=== PATIENT | female | born 1995 | race Hispanic/Latino ===

== ENCOUNTER 2018-09-05 22:05 | Emergency (ER) | payer SELFPAY ==
--- NOTE | 2018-09-06 00:54 | ER ---
Nurse's Notes [facility] Name: Deepa Cr Age: 23 yrs Sex: Female : 1995 Arrival Date: 09/05/2018 Time: 22:08 Bed 27 Private MD: Diagnosis: Acute upper respiratory infection, unspecified Presentation: 09/05 22:14 Presenting complaint: Patient states: "i am having left ear pain and body aches and jd3 just feeling bad with a little bit of fever.". Transition of care: patient was not received from another setting of care. Onset of symptoms was August 30, 2018. Risk Assessment: Do you want to hurt yourself or someone else? Patient reports no desire to harm self or others. Initial Sepsis Screen: Does the patient meet any 2 criteria? No. Patient's initial sepsis screen is negative. Does the patient have a suspected source of infection? No. Patient's initial sepsis screen is negative. Care prior to arrival: None. 22:14 Method Of Arrival: Ambulatory jd3 22:14 Acuity: BELLO 4 jd3 BRAND MGR: 22:16 LMP 09/05/2018 jd3 Historical: - Allergies: 22:16 No Known Allergies; jd3 - Home Meds: 22:16 None [Active]; jd3 - PMHx: 22:16 None; jd3 - PSHx: 22:16 None; jd3 - Immunization history:: Adult Immunizations up to date. - Social history:: Smoking status: Patient/guardian denies using tobacco. - Ebola Screening: : Patient negative for fever greater than or equal to 101.5 degrees Fahrenheit, and additional compatible Ebola Virus Disease symptoms. Screenin:00 Abuse screen: Denies threats or abuse. Denies injuries from another. Nutritional rr5 screening: No deficits noted. Tuberculosis screening: No symptoms or risk factors identified. Fall Risk None identified. Total Burks Fall Scale indicates No Risk (0-24 pts). Assessment: 23:00 General: Appears in no apparent distress. uncomfortable, Behavior is calm, cooperative, rr5 appropriate for age. Pain: Complains of pain in left ear Pain does not radiate. Pain currently is 8 out of 10 on a pain scale. Quality of pain is described as aching, Pain began gradually, Is intermittent. Neuro: Level of Consciousness is awake, alert, obeys commands, Oriented to person, place, time, situation, Appropriate for age. Cardiovascular: Capillary refill < 3 seconds Patient's skin is warm and dry. Respiratory: Airway is patent Respiratory effort is even, unlabored, Respiratory pattern is regular, symmetrical. GI: No signs and/or symptoms were reported involving the gastrointestinal system. : No signs and/or symptoms were reported regarding the genitourinary system. EENT: Reports pain in left ear when swallowing Pain is 8 out of 10 on a pain scale. Derm: Skin is intact, Skin temperature is warm. Musculoskeletal: Capillary refill < 3 seconds, Range of motion: intact in all extremities, Reports weakness in body. 09/06 00:10 Reassessment: Patient appears in no apparent distress at this time. Patient is alert, rr5 oriented x 3, equal unlabored respirations, skin warm/dry/pink. awaiting for laboratory report no complaints made. Vital Signs: 09/05 22:16 BP 135 / 82; Pulse 104; Resp 17 S; Temp 98.6(O); Pulse Ox 98% on R/A; Weight 83.91 kg jd3 (R); Height 5 ft. 0 in. (152.40 cm) (R); Pain 7/10; 23:00 BP 112 / 87; Pulse 95; Resp 17; Pulse Ox 100% ; rr5 09/06 00:00 BP 116 / 81; Pulse 91; Resp 16; Pulse Ox 99% ; rr5 09/05 22:16 Body Mass Index 36.13 (83.91 kg, 152.40 cm) jd3 ED Course: 09/05 22:08 Patient arrived in ED. es 22:15 Triage completed. jd3 22:17 Arm band placed on. jd3 22:22 Noni Callahan [facility]C [facility]. kb 22:22 Rafy Deutsch MD is Attending Physician. kb 23:02 Espinoza Ramírez, TIFFANIE is Primary Nurse. rr5 09/06 00:14 No provider procedures requiring assistance completed. rr5 Administered Medications: No medications were administered Outcome: 00:53 Discharge ordered by . kb 01:14 Patient left the ED. rr5 Signatures: Noni Callahan FNP-C FNP-[place] Jonathon, RN RN jd3 Ramírez, Espinoza, RN RN rr5
--- NOTE | 2018-09-06 00:54 | EDPHYS ---
Physician Documentation [facility] Name: Deepa Cr Age: 23 yrs Sex: Female : 1995 Arrival Date: 09/05/2018 Time: 22:08 Bed 27 Private MD: ED Physician Rafy Deutsch HPI: 09/06 00:43 This 23 yrs old Female presents to ER via Ambulatory with complaints of kb Weakness, Ear Pain. 00:43 The patient or guardian reports cough, that is intermittent, described as mild, with no kb sputum, flu symptoms, arthralgias, low-grade fever, myalgias. Onset: The symptoms/episode began/occurred 1 week(s) ago. Severity of symptoms: At their worst the symptoms were mild, in the emergency department the symptoms are unchanged. Modifying factors: The symptoms are alleviated by nothing, the symptoms are aggravated by nothing. Associated signs and symptoms: Pertinent positives: earache, fever, rhinorrhea, sore throat, Pertinent negatives: chest pain, diarrhea, nausea, vomiting. The patient has not experienced similar symptoms in the past. The patient has not recently seen a physician. 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 - Social history:: Smoking status: Patient/guardian denies using tobacco. - Ebola Screening: : Patient negative for fever greater than or equal to 101.5 degrees Fahrenheit, and additional compatible Ebola Virus Disease symptoms. ROS: 09/06 00:41 Cardiovascular: Negative for chest pain, palpitations, and edema, Abdomen/GI: Negative kb for abdominal pain, nausea, vomiting, diarrhea, and constipation, Back: Negative for injury and pain, : Negative for injury, bleeding, discharge, and swelling, MS/Extremity: Negative for injury and deformity, Skin: Negative for injury, rash, and discoloration, Neuro: Negative for headache, weakness, numbness, tingling, and seizure. Constitutional: Positive for body aches, chills, fatigue, fever, malaise, Negative for poor PO intake, weight loss. ENT: Positive for ear pain, rhinorrhea, sinus congestion, sore throat. Respiratory: Positive for cough, Negative for dyspnea on exertion, hemoptysis, orthopnea, pleurisy, shortness of breath, sputum production, wheezing. Exam: 00:42 Constitutional: This is a well developed, well nourished patient who is awake, alert, kb and in no acute distress. Head/Face: Normocephalic, atraumatic. ENT: Nares patent. No nasal discharge, no septal abnormalities noted. Tympanic membranes are normal and external auditory canals are clear. Oropharynx with no redness, swelling, or masses, exudates, or evidence of obstruction, uvula midline. Mucous membranes moist. Neck: Trachea midline, no thyromegaly or masses palpated, and no cervical lymphadenopathy. Supple, full range of motion without nuchal rigidity, or vertebral point tenderness. No Meningismus. Chest/axilla: Normal chest wall appearance and motion. Nontender with no deformity. No lesions are appreciated. Cardiovascular: Regular rate and rhythm with a normal S1 and S2. No gallops, murmurs, or rubs. Normal PMI, no JVD. No pulse deficits. Respiratory: Lungs have equal breath sounds bilaterally, clear to auscultation and percussion. No rales, rhonchi or wheezes noted. No increased work of breathing, no retractions or nasal flaring. Abdomen/GI: Soft, non-tender, with normal bowel sounds. No distension or tympany. No guarding or rebound. No evidence of tenderness throughout. Skin: Warm, dry with normal turgor. Normal color with no rashes, no lesions, and no evidence of cellulitis. MS/ Extremity: Pulses equal, no cyanosis. Neurovascular intact. Full, normal range of motion. Neuro: Awake and alert, GCS 15, oriented to person, place, time, and situation. Cranial nerves II-XII grossly intact. Motor strength 5/5 in all extremities. Sensory grossly intact. Cerebellar exam normal. Normal gait. Vital Signs: 09/05 22:16 BP 135 / 82; Pulse 104; Resp 17 S; Temp 98.6(O); Pulse Ox 98% on R/A; Weight 83.91 kg jd3 (R); Height 5 ft. 0 in. (152.40 cm) (R); Pain 7/10; 23:00 BP 112 / 87; Pulse 95; Resp 17; Pulse Ox 100% ; rr5 09/06 00:00 BP 116 / 81; Pulse 91; Resp 16; Pulse Ox 99% ; rr5 09/05 22:16 Body Mass Index 36.13 (83.91 kg, 152.40 cm) jd3 MDM: 09/05 22:51 Patient medically screened. kb 09/06 00:42 Data reviewed: vital signs, nurses notes. Data interpreted: Pulse oximetry: on room air kb is 99 %. Interpretation: normal. 00:52 Counseling: I had a detailed discussion with the patient and/or guardian regarding: the kb historical points, exam findings, and any diagnostic results supporting the discharge/admit diagnosis, lab results, the need for outpatient follow up, a family practitioner, to return to the emergency department if symptoms worsen or persist or if there are any questions or concerns that arise at home. 09/05 23:02 Order name: Flu; Complete Time: 00:52 kb 09/05 23:02 Order name: Strep; Complete Time: 00:52 kb 09/06 00:51 Order name: Throat Culture EDMS Administered Medications: No medications were administered Disposition: 12:09 Co-signature as Attending Physician, Rafy Deutsch MD I agree with the assessment and [facility] plan of care. Disposition: 09/06/18 00:53 Discharged to Home. Impression: Acute upper respiratory infection, unspecified. - Condition is Stable. - Discharge Instructions: Upper Respiratory Infection, Adult, [id number]. - Medication Reconciliation Form, Thank You Letter, Antibiotic Education, Prescription Opioid Use, Work release form form. - Follow up: Emergency Department; When: As needed; Reason: Worsening of condition. Follow up: Private Physician; When: 2 - 3 days; Reason: Recheck today's complaints, Continuance of care, Re-evaluation by your physician. Signatures: Dispatcher [employer] EDMS Noni Callahan, JARETH-Rafy Shaw MD MD cha Davies, Jonathon RN RN jEspinoza Matt RN RN rr5 Corrections: (The following items were deleted from the chart) 01:14 00:53 09/06/2018 00:53 Discharged to Home. Impression: Acute upper respiratory rr5 infection, unspecified. Condition is Stable. Forms are Medication Reconciliation Form, Thank You Letter, Antibiotic Education, Prescription Opioid Use. Follow up: Emergency Department; When: As needed; Reason: Worsening of condition. Follow up: Private Physician; When: 2 - 3 days; Reason: Recheck today's complaints, Continuance of care, Re-evaluation by your physician. kb
== END 2018-09-06 01:14 | disposition home or self-care (01) ==
LOC: ER 22:05
DX: J06.9 Acute upper respiratory infection, unspecified (principal)
CPT/HCPCS: 87070; 87081; 87804; 99281